=== PATIENT | female | born 1980 | race Caucasian/White ===

== ENCOUNTER 2017-05-22 20:47 | Emergency (ER) | payer SELFPAY ==
[~2017-05-22] VITALS: Ht 175.3 cm; Wt 111.5 kg
[~2017-05-22 20:47] MED LIST: ACET500C5 PO; AMOX500T PO
[2017-05-22 21:30] VITALS: Ht 175.3 cm; Wt 111.5 kg
[2017-05-22] MEDS ORDERED: PENICILLIN G BENZ 1.2 MIL UNIT SYG IM ONE (23:00)
--- NOTE | 2017-05-22 23:09 | ERD ---
ER Documentation Chief Complaint Date/Time DATE: 05/22/17 TIME: 23:06 Chief Complaint sore throat since this am. Hx of strep HPI Patient is a 36-year-old female with no past medical history who presents to the ED with sore throat, pain with swallowing and body aches since this morning. Patient states that she has a history of strep and usually gets strep around this time every year. Patient usually just gets an injection in the emergency department with helps with her symptoms. She denies fever or chills. She denies cough. Denies abdominal pain, nausea, vomiting or diarrhea. Denies headache or dizziness, neck pain or neck stiffness. Denies chest pain or cough or shortness of breath. No other complaints. ROS All systems reviewed and are negative except as per history of present illness. Medications Home Meds Active Scripts Amoxicillin Trihydrate (Amoxicillin) 500 Mg Tablet, 500 MG PO BID, #20 TAB Prov:YEE OG PA-C 05/05/16 Acetaminophen* (Tylophen*) 500 Mg Capsule, 1 CAP PO Q6H Y for PAIN AND OR ELEVATED TEMP, #30 CAP Prov:YEE OG PA-C 05/05/16 PMhx/Soc History of Surgery: No Anesthesia Reaction: No Hx Neurological Disorder: No Hx Respiratory Disorders: No Hx Cardiac Disorders: No Hx Psychiatric Problems: No Hx Miscellaneous Medical Probl: No Hx Alcohol Use: No Hx Substance Use: No Hx Tobacco Use: Yes Smoking Status: Light tobacco smoker FmHx Family History: No coronary disease, No diabetes, No other Physical Exam Vitals Vital Signs Date Time Temp Pulse Resp B/P Pulse Ox O2 Delivery O2 Flow Rate FiO2 05/22/17 21:30 98.2 87 18 139/88 99 Physical Exam GENERAL: Well-developed, well-nourished female. Appears in no acute distress. HEAD: Normocephalic, atraumatic. EYES: Pupils are equally reactive bilaterally. EOMs grossly intact. No conjunctival erythema. ENT: Moist mucous membranes. No uvula deviation. No kissing tonsils. Bilaterally and enlarged erythematous tonsils with mild exudates. Bilateral TMs clear with no mastoid tenderness NECK: Supple. No lymphadenopathy or thyromegaly. No meningismus. negative kernig. negative brudinski. LUNG: Clear to auscultation bilaterally. No rhonchi, wheezing, rales or coarse breath sounds. HEART: Regular rate and rhythm. No murmurs, rubs or gallops. Extremities: Equal pulses bilaterally. No peripheral clubbing, cyanosis or edema. No unilateral leg swelling. NEUROLOGIC: Alert and oriented. Moving all four extremities. 5/5 strength in all extremities. Normal speech. Steady gait. SKIN: Normal color. Warm and dry. No rashes or lesions. Capillary refill < 2 seconds Results 24 hrs Current Medications Medications (Trade) Dose Ordered Sig/Subhash Route PRN Reason Start Time Stop Time Status Last Admin Dose Admin Penicillin G Benzathine (Bicillin La) 1,200,000 units ONCE ONCE IM 05/22/17 23:00 05/22/17 23:01 DC Procedures/MDM ER COURSE: I kept the patient and/or family informed of laboratory and diagnostic imaging results throughout the emergency room course. MEDICAL DECISION MAKING: This is a 36-year-old female who presents with sore throat, body aches times this morning. Vital signs were reviewed. Patient is afebrile. Patient is not hypoxic. Patient is nontoxic or ill-appearing. Patient likely has pharyngitis of strep etiology. Patient was given penicillin G benzathine shot here in the ED. Tolerated well with no adverse reaction. Low suspicion for peritonsillar abscess, , mononucleosis, dental abscess. Low suspicion for pneumonia, PE, pneumothorax, ACS, epiglottitis, obstruction, TB, pertussis, meningitis, sepsis. DISCHARGE: At this time, patient is stable for discharge and outpatient management with no new complaints during the ER course. Patient was sent home with Tylenol. Patient will be discharged home with instructions to recheck for new or worsening symptoms such as fever, nausea, weakness, LOC and to follow up with primary care in the next 1-2 days. Patient was advised to return to the ER for any new or worsening symptoms. Plan was discussed and patient and/or family understands and agrees. Home instructions were given. Departure Diagnosis: Primary Impression: Strep pharyngitis Condition: Stable RAI ANGELA PA-C May 22, 2017 23:09
[2017-05-22] MEDS ORDERED: ACET500C5 PO (23:10)
== END 2017-05-22 23:57 | disposition home or self-care (01) ==
LOC: FTE 20:47
DX: J02.0 Streptococcal pharyngitis (principal); F17.210 Nicotine dependence, cigarettes, uncomplicated
CPT/HCPCS: 96372; 99284; J0561